=== PATIENT | female | born 1980 | race Caucasian/White ===

== ENCOUNTER 2016-12-11 14:57 | Emergency (ER) | payer OTHER ==
[~2016-12-11] VITALS: Ht 175.3 cm; Wt 84.1 kg
[2016-12-11 15:00] VITALS: BP 105/70; PULSE 91; RESP 20; O2SAT 99
--- NOTE | 2016-12-11 15:22 | ED.REPORT ---
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 The patient woke up with her right lower arm feeling weak, numb, and cold with associated inability to perform wide load escort. Her numbness is worst about the right thumb. She is with 1 and 2 miscarriages and is currently taking Subutex and has not injected since March 31, 2016. Pt denies YUNG, speech changes, dysphagia, numbness or weakness in any other area. She smokes 5 cigarettes each day. There is no family history of medical problems. She has also been experiencing bilateral equal lower extremity edema. No PCP. She sees [facility] Nursing Notes Stated Complaint: ,ARM NUMBNESS,SWELLING Chief Complaint: Neuro Symptoms/ Deficits Nursing Notes Reviewed: Yes Allergies: Coded Allergies: No Known Allergies (Verified Allergy, Unknown, 10/25/13) No Active Prescriptions or Reported Meds General Time Seen by Provider: 15:23 Chief Complaint Weakness arm... 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 Physical Exam Initial Vital Signs Vital Signs (First) Date Time Temp Pulse Resp B/P Pulse Ox O2 Delivery O2 Flow Rate FiO2 12/11/16 15:00 36.7 91 20 105/70 99 Room Air Initial VS: Reviewed, Vital signs normal ENT: Mucous membranes moist, Conjunctiva normal Skin: Warm, Dry, No cyanosis Psychiatric: Mood/affect normal, Behavior normal, Normal thought content General/Constitutional: Awake, Alert, No acute distress, Well appearing, Cooperative, Not toxic appearing Head / Eyes: Atraumatic, Normocephalic, PERRL, EOMI Respiratory / Chest: Breath sounds NL, Breath sounds = bilat, No respiratory distress, No rales, No rhonchi, No wheezing Cardiovascular: Heart rate NL, Regular rhythm, Heart sounds NL, No gallop, No murmurs, No rubs, Cap refill not delayed, Peripheral circulation NL Neurologic: Oriented X3, Speech NL, CN II - XII intact, Memory NL No facial droop or asymmetry No facial numbness Full strength with cross arm adduction Abduction and some extension of fingers is impaired Wrist extensors impaired Wrist flexors intact Full flexion and extension of the elbow Bicep and tricep reflexes intact Brachioradialis intact Ankle intact Quadriceps and hamstrings intact Knee jerk reflexes intact Neck: Supple, Full range of motion, No carotid bruit, Thyroid NL Re-Eval/Medical Decision Med Decision/Clinical Course 36-year-old female with a history highly suggestive of an acute radial nerve palsy and exam consistent with same. Given considered the possibility of acute stroke seem much less likely, this was discussed with the patient and she elected not to be imaged at present. Splinted and referred to orthopedics. Source of Hx: Old records Re-Evaluation/Progress : Time of Eval: 15:41 Re-Evaluation/Progress Note: Pt rechecked. Discussed option of obtaining an MRI to rule out stroke. She would like to be discharged without MRI and come back if any new or worsening symptoms. Informed pt of plan for discharge. Pt understands and agrees with plan for discharge. F/U instructions and RTER warnings given. All questions addressed. Counseled Regarding: Diagnosis, Need for follow-up, When/why to return to ED Discharge & Departure Impression: Primary Impression: Neurapraxia of peripheral nerve Disposition: Home Discharge Condition All VS Reviewed: Yes Condition: Stable Patient Instructions: Neurapraxia (ED) Additional Instructions: Ed evaluation included interview and exam. We elected not to pursue MRI brain/ cervical spine as this seems almost certainly to be a peripheral nerve injury from compression during sleep. We will splint your wrist for support. We advise following up with orthopedics for further evaluation. Hopefully it will be better soon, but can take 2-3 months to resolve. Return to ED immediately if you have new weakness. Referrals: Garima Garnica (PCP) Maximino Espinoza MD, Jean Marie MD [facility] Attestation Portions of this note were transcribed by Christopher Frazier. I, Dr. Jin personally performed the history, physical exam and medical decision-making; I reviewed and confirmed the accuracy of the information in the transcribed note. copies to: Garima Garnica; Maximino Espinoza MD; [facility] Jamal Jin MD Dec 11, 2016 15:22 CHRISTOPHER FRAZIER Dec 11, 2016 15:29
--- NOTE | 2016-12-11 15:32 | NUR ---
heart tones were in the 140's. Baby was very active. Mom stated she had not felt the baby move for 2 days. She stated "the baby just started moving and is moving a lot". She had been sent to the ER from the office for swelling and arm numbness.
[2016-12-11 16:13] VITALS: BP 104/68; PULSE 80; RESP 15; O2SAT 98
[2016-12-11 16:31] VITALS: BP 104/68; PULSE 80; RESP 15; O2SAT 98
== END 2016-12-11 16:25 | disposition home or self-care (01) ==
LOC: SED 14:57
DX: O9A.212 Injury, poisoning and certain other consequences of external causes complicating pregnancy, second trimester (principal); S54.91XA Injury of unspecified nerve at forearm level, right arm, initial encounter; X58.XXXA Exposure to other specified factors, initial encounter; Y93.89 Activity, other specified; Y92.89 Other specified places as the place of occurrence of the external cause; Y99.8 Other external cause status; Z3A.24 24 weeks gestation of pregnancy; F17.200 Nicotine dependence, unspecified, uncomplicated; F11.10 Opioid abuse, uncomplicated